=== PATIENT | female | born 2005 | race Two or more races ===

== ENCOUNTER 2024-01-25 15:52 | Emergency (ER) | payer OTHER ==
[2024-01-25 16:01] VITALS: BP 103/72; PULSE 92; RESP 18; TEMP 98.6; BMI 32.9
[2024-01-25 18:00] LABS: URINE APPEARANCE CLEAR; URINE BILIRUBIN NEGATIVE (NEGATIVE); URINE COLOR YELLOW; URINE GLUCOSE (UA) NEGATIVE (NEGATIVE); URINE KETONE NEGATIVE (NEGATIVE); URINE LEUK ESTERASE NEGATIVE (NEGATIVE); URINE NITRITE NEGATIVE (NEGATIVE); URINE PROTEIN NEGATIVE (NEGATIVE); URINE UROBILINOGEN 0.2 mg/dL (0.2-1.0)
[2024-01-25 18:03] LABS: HCG,QUALITATIVE URINE Negative
[2024-01-25 18:14] LABS: BASO % 0.9 % (0-2.0); EOS % 0.8 % (0-4.5); HEMATOCRIT 34.7 % (32.4-45.2); HEMOGLOBIN 11.1 GM/dL (10.7-15.3); LYMPH % 37.5 % (8-40); MCH 24.3 pg (25.7-33.7); MCHC 32.1 g/dl (32.0-36.0); MEAN CELL VOLUME 75.8 fl (80-96); MEAN PLT VOLUME 8.1 fl (7.5-11.1); NEUT % 55.8 % (42.8-82.8); PLATELET COUNT 323 10^3/uL (134-434); RBC 4.58 M/mm3 (3.60-5.2); RDW 16.5 % (11.6-15.6); WHITE BLOOD COUNT 7.1 K/mm3 (4.0-10.0)
[2024-01-25 18:21] LABS: THROAT:GRP A STREP NOT DETECTED (NOTDETECTED)
[2024-01-25 18:32] LABS: POTASSIUM 4.2 mmol/L (3.5-5.1)
[2024-01-25 18:35] LABS: CALCIUM 9.5 mg/dL (8.5-10.1)
[2024-01-25 18:36] LABS: ALBUMIN 3.8 g/dl (3.4-5.0)
[2024-01-25] MEDS ORDERED: ONDANSETRON 4 MG/2 ML VIAL ONE (18:36)
[2024-01-25 18:39] LABS: CREATININE 0.8 mg/dL (0.55-1.3)
[2024-01-25 18:41] LABS: TOT PROT 7.7 g/dl (6.4-8.2)
[2024-01-25] MEDS: SODIUM CHLORIDE 0.9% 500 ML INFUS.BAG IV ONE (18:48)
[2024-01-25] MEDS: ONDANSETRON 4 MG/2 ML VIAL IVPUSH ONE (18:48)
[2024-01-25 19:25] LABS: HIV INTERPRETATION NEGATIVE (NEGATIVE)
== END 2024-01-25 20:10 | disposition home or self-care (01) ==
LOC: JER 15:52
PROC: 3E033GC Introduction of Other Therapeutic Substance into Peripheral Vein, Percutaneous Approach (ICD-10-PCS; principal; 2024-01-25)
DX: S50.861A Insect bite (nonvenomous) of right forearm, initial encounter (principal); S80.861A Insect bite (nonvenomous), right lower leg, initial encounter; R11.10 Vomiting, unspecified; R09.81 Nasal congestion; J02.9 Acute pharyngitis, unspecified; R42 Dizziness and giddiness; B34.9 Viral infection, unspecified; W57.XXXA Bitten or stung by nonvenomous insect and other nonvenomous arthropods, initial encounter; Z20.822 Contact with and (suspected) exposure to COVID-19
CPT/HCPCS: 0241U-QW; 36415; 80053; 81003; 84703; 85025; 86803; 87086; 87389; 87651; 99284-25